=== PATIENT | male | born 1970 | race Caucasian/White ===

== ENCOUNTER 2021-06-29 22:48 | Emergency (ER) | payer SELFPAY ==
[2021-06-29] MEDS ORDERED: Morphine 4 MG/ML VIAL ONE (23:12)
[2021-06-29] MEDS ORDERED: Ketorolac Tromethamine 30 MG/ML VIAL ONE (23:12)
== END 2021-06-29 23:20 | disposition home or self-care (01) ==
LOC: BURERS 22:48
DX: K40.90 Unilateral inguinal hernia, without obstruction or gangrene, not specified as recurrent (principal); F17.210 Nicotine dependence, cigarettes, uncomplicated
CPT/HCPCS: 96372; 99283; J1885; J2270